=== PATIENT | female | born 1945 | race Caucasian/White ===

== ENCOUNTER 2016-07-18 10:55 | Day surgery (SDC) | payer MEDICARE, OTHER ==
[~2016-07-18] VITALS: Ht 170.2 cm; Wt 68.1 kg
[~2016-07-18 10:55] MED LIST: ASCO100089 PO; CALC600T12 PO; CHOL5000 PO; CRAN500T PO; CYAN50008 PO; FOLI1TAB18 PO; GABA-502 PO; Gentamicin 80 mg/50 mL D5W IV ONE; LORA1TAB PO; Lactated Ringer's 1,000 ML IV SCH; OXYC15TA79 PO; OXYC30TA80 PO; PROP150T PO; TAMS0.4C98 PO; TROS20TA4 PO; VITA150T PO; WARF5TAB7 PO
[2016-07-18] MEDS ORDERED: OXYB5TAB10 PO (11:24)
[2016-07-18 11:41] VITALS: BP 123/59; PULSE 59; RESP 16; O2SAT 100
[2016-07-23] MEDS ORDERED: TROS20TA4 PO (17:05)
== END 2016-07-18 23:59 | disposition home or self-care (01) ==
LOC: SAS 10:55
PROVIDERS: ATTEND Urology
DX: I48.91 Unspecified atrial fibrillation (principal); Z53.09 Procedure and treatment not carried out because of other contraindication

== ENCOUNTER 2016-07-24 00:38 | Day surgery (SDC) | payer MEDICARE, OTHER ==
[~2016-07-24] VITALS: Ht 170.2 cm; Wt 69.3 kg
[2016-07-24] VITALS (15 sets, daily range): BP systolic 107–129; BP diastolic 46–93; PULSE 55–79; RESP 12–20; O2SAT 97–100
[~2016-07-24 00:38] MED LIST changes: -Gentamicin 80 mg/50 mL D5W IV ONE; -Lactated Ringer's 1,000 ML IV SCH
[2016-07-24] MEDS ORDERED: Vancomycin 1 Gm/200 mL NS Premix IV ONE (07:35)
[2016-07-24] MEDS: 0.9% Sodium Chloride 1,000 ML IV SCH ×3 (07:35→18:56)
[2016-07-24 11:52] LABS: Mean Corpuscular Hemoglobin 32.1 pg (27.0-35.0); Mean Corpuscular Volume 99.5 fL (81-100); Platelet Count 303 bil/L (150-400)
[2016-07-24 11:53] LABS: BASOPHILS % (AUTO) 0.2 % (0-3); EOSINOPHILS % (AUTO) 2.3 % (0-5); MONOCYTES % (AUTO) 9.8 % (4-12); NEUTROPHILS % (AUTO) 72.5 % (40-74)
[2016-07-24] MEDS ORDERED: 0.9% Sodium Chloride 1,000 ML ONE (12:00)
[2016-07-24] MEDS ORDERED: Bupivacaine-MPF 0.5% 30 mL Inj ONE (12:01)
[2016-07-24] MEDS ORDERED: 0.9% Sodium Chloride 250 ML ONE (12:01)
[2016-07-24] MEDS ORDERED: Heparin 1,000 Unit/mL 10 mL Inj ONE (12:01)
[2016-07-24] MEDS ORDERED: DIPH25CA6 PO (12:06)
[2016-07-24 12:10] LABS: INR 2.14 ratio
--- NOTE | 2016-07-24 12:22 | NUR ---
[place] Patient admitted to [facility] bed 5 at 1115. at bedside. Patient denies pain. HL X 2 placed and labs obtained. ECG 12 complete. Consent confirmed. History and medications reviewed. Pre-procedure teaching done and questions answered.
[2016-07-24] MEDS ORDERED: Vancomycin 1,000 mg Inj ONE (12:38)
[2016-07-24] MEDS ORDERED: fentaNYL-PF 50 mCg/mL 2 mL Inj ONE (13:28)
[2016-07-24] MEDS ORDERED: Ondansetron 2 mg/mL 2 mL Inj IVPUSH PRN (14:30)
--- NOTE | 2016-07-24 15:21 | DRSVH ---
PROCEDURE: X-RAY CHEST ONE VIEW, PORTABLE ([id number]) INDICATIONS: For new leads placed TECHNIQUE: One view of the chest was acquired. COMPARISON: [facility], CR, XR CHEST 2VW, 07/11/2016, 14:39. FINDINGS: Surgical changes and devices: Dual chamber cardiac pacer present in expected position. Lungs and pleura: No pleural effusions or pneumothorax. Lungs are clear. Mediastinum: Mediastinal contours appear normal. Heart size is normal. Bones and chest wall: No suspicious bony lesions. Overlying soft tissues appear unremarkable. IMPRESSION: No immediate complications status post cardiac pacemaker placement. Dictated by: Gerald JANG Interpreted: Clotilde Telles MD on 07/24/2016 at 15:20 Transcribed by: CARLOS on 07/24/2016 at 15:20 Approved by: Clotilde Telles M.D. on 07/24/2016 at 17:32
[2016-07-24] MEDS ORDERED: diphenhydrAMINE 25 mg Capsule PO ONE ×2 (16:49→16:55)
--- NOTE | 2016-07-24 17:57 | NUR ---
[facility] Patient return to [facility] from [employer] at 1445. at bedside. Pacemaker placement left chest. No bleeding or hematoma at incision site. Initially denies pain but did eventually C/O 10/03. Medicated with oxycodone which patient takes as a home medication but causes her to itch so also given benadryl. Taking PO and up to BSC prior to transfer. Transferred by bed to room 3030 at 1715. Report to receiving RN.
[2016-07-24] MEDS ORDERED: LORazepam 1 mg Tablet PO PRN (18:15)
--- NOTE | 2016-07-24 18:19 | NUR ---
[place] Patient arrive at 1720, oriented to room and hospital policies. Patient denies pain, shortness of breath, and nausea. Dinner ordered, PO fluids provided, and patient asked to call when getting up to BSC. Pacer site on left chest c/d/i, no drainage swelling or indurating. Teaching done on post pacer insertion, sling, lifting and raising arm above shoulder.
--- NOTE | 2016-07-24 18:34 | PCM.CONPHA ---
Assessment/Plan Assessment/Plan ANTICOAGULATION MANAGEMENT BY PHARMACY -INDICATION: HX OF DVT -HOME DOSE: 7.5 MG MON/FRI, 5MG AOD -CONCURRENT ANTICOAGULATION: NONE -CRCL: 73.8 ML/MIN -COAG TRENDS: Date INR 2.14 INR change ~ Warf Dose 5 MG -[id number] SCORE: 2 PLAN: AFTER CONSULTING WITH PATIENT SHE HAS NOT HAD HER HOME DOSE OF COUMADIN 5 MG TONIGHT, SO WILL RESTART AND GIVE HER A OT DOSE. INR ORDERED X5 DAYS Pharmacy appreciates consult and will continue to monitor. THANKS! Sweta Kimball PharmD Jul 24, 2016 18:34
[2016-07-24] MEDS ORDERED: Vancomycin Inj 1,000 MG in IV Premix 1 EACH IV ONE (19:30)
[2016-07-24] MEDS: MeTOProlol XL 25 mg ER24 Tablet PO SCH (21:26)
[2016-07-24] MEDS: diphenhydrAMINE 25 mg Capsule PO PRN (21:32)
--- NOTE | 2016-07-24 21:58 | OP ---
[address] [address] OPERATIVE REPORT PATIENT: CARMELLA NORTH : 1945 MR#: [id number] ADMIT: 07/24/2016 JOB ID: [id number] DATE OF SURGERY: 07/24/2016 PREOPERATIVE DIAGNOSIS(ES): Sick sinus syndrome. POSTOPERATIVE DIAGNOSIS(ES): Sick sinus syndrome. PROCEDURES PERFORMED: 1. Dual-chamber pacemaker implantation. 2. Left upper extremity venogram. 3. Fluoroscopy. SURGEON: Chidi Santa MD BLACKENER: Familia Prado. IMPLANTED DEVICES: 1. [employer] Accolade MRI. Pulse generator model L331, serial #[id number]. 2. RA lead [employer] and Jevity MRI, 45 cm, model #7740, serial #[id number]. 3. RV lead [employer] and [employer]ev[employer] MRI, 52 cm, model #80495Z serial #[id number]. ANESTHESIA: Bolus dosing of Versed and fentanyl were used for an appropriate level of sedation. INDICATION: The patient is a pleasant 70-year-old with sick sinus syndrome. After discussion of risks and benefits of pacemaker implantation, she opted to proceed. PROCEDURAL DESCRIPTION: Following informed consent, the patient was taken to the EP laboratory in a fasting nonsedated state where she was prepped in usual sterile fashion. The left infraclavicular region was infiltrated with 40 cc of a 50/50 mixture of bupivacaine and lidocaine. A 3 cm transverse incision was performed and the patient . Dissection carried down to pectoral fascia and a pocket was then fashioned using a combination of electrocautery and blunt dissection. Once adequate hemostasis had been achieved and under venographic guidance, the left axillary and was cannulated two times with a micropuncture needle to deploy two 0.035, 3 mm J guidewires. Over the first of these, a 6-Occitan tear-away sheath was advanced. Once again it was removed and active fixation lead was in the RV outflow tract all the way to the RV apex. The lead was affixed in position using its associated active fixation screw and was connected to the external analyzer. It demonstrated appropriately sensed R waves, impedance, capture threshold was checked to 10 V and there was no evidence of diaphragmatic stimulation. Attention was now paid to placement of the right atrial lead. Over the other previously deployed J guidewire, another 6-Occitan tear-away sheath was advanced. Once the guidewire was removed, an active fixation wire was advanced to the right atrial appendage. It was affixed in position using associated fixation screw. It was connected to the external analyzer and demonstrated appropriately sensed P waves, impedance, capture threshold was checked to 10 V and there was no evidence of diaphragmatic stimulation. Once the position and redundancy of both leads was confirmed with multiple fluoroscopic views, the leads were anchored to the prepectoralis fascia using their associated anchoring sleeves and Ethibond sutures. The pocket was then copiously irrigated with antibiotic solution. The leads were connected to a generator, the generator was placed into the pocket and was affixed to the floor of the pocket using 1-0 Ti-Cron suture. The incision was then closed with running layers of absorbable suture. The wound was dressed with skin adhesive and a small dressing. At the end of the procedure, the needle, sponge, and instrument counts were all correct. COMPLICATIONS: None. ESTIMATED BLOOD LOSS: Negligible. DEVICE MEASURED DATA: 1. Right atrial lead 2.2 mV, 0.5 V at 0.4 msec, 663 ohms. 2. RV lead 6.3 mV 0.6 V at 0.4 msec 708 ohms. 3. Final parameter was DDDR 60 to 130 beats per minute with rhythmic on. IMPRESSION: Successful dual-chamber pacemaker implantation. PLAN: 1. Stat portable chest x-ray. 2. PA and lateral chest x-ray in the morning. 3. IV vancomycin through tomorrow. 4. Doxycycline x7 days. 5. Wound check in one week. ATTENDING STATEMENT: Chidi Snata MD, electrophysiology attending, was present for and supervised and/or performed all aspects of this procedure.
[2016-07-25] MEDS: 0.9% Sodium Chloride 1,000 ML IV SCH ×3 (00:27→08:15)
[2016-07-25 00:28] VITALS: BP 93/56; PULSE 60; RESP 14; O2SAT 94
[2016-07-25 04:37] VITALS: BP 90/54; PULSE 60; RESP 14; O2SAT 96
[2016-07-25 04:57] VITALS: BP 108/62; PULSE 60
--- NOTE | 2016-07-25 05:10 | NUR ---
PT ACTIVITY & PAIN Pt has been up to BR and BSC w/ SBA to 1 person assist. Pt has very limited ROM in left leg, and left arm immobile dt sling. Pt has chronic pain, received scheduled po pain medications, with some relief, pt able to rest/sleep during shift. Some tenderness and discomfort to pacemaker sight, ice application effective to relieve pain. Continue to monitor. Call light in reach. Bed alarm on. Intentional rounding.
[2016-07-25] MEDS: MeTOProlol XL 25 mg ER24 Tablet PO SCH (08:14)
[2016-07-25] MEDS: diphenhydrAMINE 25 mg Capsule PO PRN (08:21)
[2016-07-25] MEDS ORDERED: Ascorbic Acid 500 mg Tablet PO SCH (08:30)
[2016-07-25] MEDS ORDERED: Vitamin B Complex/Vit C Tablet PO SCH (08:30)
[2016-07-25] MEDS ORDERED: Calcium Carbonate (Oyster Shell) 500 mg Tablet PO SCH (08:30)
--- NOTE | 2016-07-25 09:12 | DRSVH ---
PROCEDURE: X-RAY CHEST, TWO VIEWS ([id number]) INDICATIONS: For new lead placement TECHNIQUE: 2 views of the chest were acquired. COMPARISON: [facility], CR, XR CHEST 1VW (PORTABLE), 07/24/2016, 14:50. [facility], CR, XR CHEST 2VW, 07/11/2016, 14:39. FINDINGS: Surgical changes and devices: Stable position of left cardiac pacer. Lungs and pleura: No pleural effusions or pneumothorax. Lungs are clear. Mediastinum: Mediastinal contours are normal. Heart size is normal. Bones and chest wall: No suspicious bony abnormalities. Soft tissues appear unremarkable. IMPRESSION: Stable chest. Dictated by: Gerald Berg RRA Interpreted: Erica Luke MD on 07/25/2016 at 9:11 Transcribed by: FRANCESCO on 07/25/2016 at 9:12 Approved by: Erica Luke MD, PhD on 07/25/2016 at 17:16
[2016-07-25 09:25] VITALS: BP 99/58; PULSE 60; RESP 14; O2SAT 97
--- NOTE | 2016-07-25 10:12 | PCM.DIMED ---
Discharge Instructions Date of Service Jul 25, 2016 Dates of Hospitalization Discharge Diagnosis Discharge Diagnosis Sick Sinus Syndrome with Paroxysmal Atrial Fibrillation Sinus Bradycardia Syncope Diet Heart Healthy Activity Other (Do not extend left elbow high above left shoulder for one month. Do not lift, push or pull more than 10 lbs with the left arm for one month.) Call your provider Fever or Chills, Bleeding, Excessive diarrhea Patient Instructions Follow-up in: 1 week Mid-level Provider (F9): Andre Mobley PA-C Follow-up with Mid-level in: 6 weeks Andre Mobley PA-C Jul 25, 2016 10:12
[2016-07-25] MEDS ORDERED: PROP225T PO (10:33)
[2016-07-25] MEDS ORDERED: METO25TA99 PO (10:33)
[2016-07-25] MEDS ORDERED: DOXY100C2 PO (10:34)
[2016-07-25 10:44] VITALS: PULSE 60
--- NOTE | 2016-07-25 12:02 | NUR ---
Discharge Pt d/c home with daughter at 1202 via wc by an aide. Pt denied pain. VSS. IV x2 d/c by SRN. Tele taken off, monitor made aware. Discharge education provided and all questions answered. All personal belongings left with.
--- NOTE | 2016-07-25 14:38 | DIS ---
[address] [address] DISCHARGE SUMMARY PATIENT: CARMELLA NORTH : 1945 MR#: [id number] ADMIT: 07/24/2016 JOB ID: [id number] DIS: 07/25/2016 REASON FOR ADMISSION: Pacemaker implant. CHIEF COMPLAINT: Slow heart rates and occasions of syncope. BRIEF HISTORY: The patient is a pleasant 70-year-old woman with a structurally normal heart who has been treated for paroxysmal atrial fibrillation for quite some time. She has been treated with propafenone and metoprolol but this was stopped due to sinus bradycardia and symptoms. At times when in atrial fibrillation she has very rapid responses of pulse rates over 200 BPM and this requires both antiarrhythmic and rate control medications. She was advised of the utility of a pacemaker to prevent bradycardia and allow treatment of the arrhythmia and this was arranged. COURSE IN HOSPITAL: The patient was admitted to the [facility] and taken to the cardiac cath lab radiology technologist, where she received the dual-chamber cardiac pacemaker without incident. She was then transferred back to the [facility] for recovery from sedation and then taken [place] to [place] [facility] [place] overnight telemetry and observation. She did well overnight and in the morning was ambulatory without difficulty and her incision site was closed and dry and there was no hematoma. Chest x-ray showed good lead positions and no pneumothorax. Device evaluation showed good capture and sensing thresholds. She felt well for discharge home. DISPOSITION: The patient was discharged home in good condition with a follow up appointment at the [facility] Cardiology office in one week. She was asked not to extend her left elbow high above her shoulder for one month and not to lift, push or pull more than 10 pounds with the left arm for one month. She will take medications as prescribed and follow a heart healthy diet. DISCHARGE MEDICATIONS: 1. Doxycycline 100 mg daily for one week. 2. Metoprolol succinate 25 mg b.i.d. 3. Propafenone 225 mg q.8 hours. 4. Ascorbic acid 1 g daily. 5. Calcium carbonate 600 mg daily. 6. Vitamin D 3 5000 units daily. 7. Cranberry fruit 500 mg daily. 8. Vitamin B12 5000 mcg daily. 9. Diphenhydramine 25 mg p.r.n. itching. 10. Folic acid 1 mg daily. 11. Gabapentin 600 mg b.i.d. 12. Lorazepam 1 mg b.i.d. p.r.n. anxiety. 13. Oxycodone 15 mg q.12 hours for pain. 14. Oxycodone 30 mg q.12 hours p.r.n. pain. 15. Tamsulosin 0.4 mg daily. 16. Vitamin B and vitamin C complex tablets 150 mg daily. 17. Warfarin 5 mg six days per week and warfarin 7.5 mg one day per week. FINAL DIAGNOSIS: Sick sinus syndrome with paroxysmal atrial fibrillation with rapid ventricular response, sinus bradycardia, and syncope.
== END 2016-07-25 12:09 | disposition home or self-care (01) ==
LOC: SOUO 00:38 → MPC 17:49 → SOUO 07-25 12:09
PROVIDERS: ATTEND Internal Medicine Cardiovascular Disease
DX: I49.5 Sick sinus syndrome (principal); I48.0 Paroxysmal atrial fibrillation; Z79.01 Long term (current) use of anticoagulants; R55 Syncope and collapse; Z98.84 Bariatric surgery status; Z86.718 Personal history of other venous thrombosis and embolism; F32.9 Major depressive disorder, single episode, unspecified
CPT/HCPCS: 33208; 36415; 71010; 71020; 80048; 85025; 85610; 93005; 99152; 99153; C1769; C1785; C1892; C1898; J1644; J2250; J3010; J3370; J7030; J7050; Q9967

== ENCOUNTER 2016-12-13 18:39 | Observation (INO) | payer MEDICARE, OTHER ==
[~2016-12-13] VITALS: Ht 170.2 cm; Wt 74.3 kg
[~2016-12-13 18:39] MED LIST changes: +DIPH25CA6 PO; +DOXY100C2 PO; +METO25TA99 PO; -PROP150T PO; +PROP225T PO; -TROS20TA4 PO
[2016-12-13 18:43] VITALS: BP 94/48; PULSE 70; RESP 16; O2SAT 95
[2016-12-13 19:17] LABS: BASOPHILS % (AUTO) 0.1 % (0-3); EOSINOPHILS % (AUTO) 1.1 % (0-5); MONOCYTES % (AUTO) 11.1 % (4-12); Mean Corpuscular Volume 103.4 fL (81-100); NEUTROPHILS % (AUTO) 75.4 % (40-74); Platelet Count 319 bil/L (150-400)
[2016-12-13 19:23] VITALS: BP 91/47; PULSE 70; RESP 17; O2SAT 96
[2016-12-13 19:23] LABS: INR 0.94 ratio
[2016-12-13 19:28] LABS: TROPONIN T < 0.010 ug/L (0.0-0.011)
--- NOTE | 2016-12-13 19:52 | ABG ---
DateTimeAnalyzed 19:44:15 -_ pH ____7.388 - 7.350 7.450 pCO2 ___47.3__ -mmHg 35.0 45.0 pO2 ___79.4__ -mmHg 70.0 100 HCO3- ___28.5__ -mmol/L 22.0 26.0 ABE ____3.1__ -mmol/L -2.0 2.0 tHb ___12.1__ -g/dL 12.0 18.0 O2Hb ___95.0__ -% 95.0 COHb ____0.5__ -% 1.5 MetHb ____0.2__ -% 0.4 1.5 sO2 ___95.6__ -% FIO2 ___21.0__ -% Drawn By MK - Date/Time Notified____ 19:51:00 -_ Notified By MK - K+ ____4.7__ -mmol/L tO2 ___16.3__ -Vol% Damon test _Positive -
[2016-12-13 20:17] LABS: APPEARANCE,URINE HAZY (CLEAR,HAZY); COLOR,URINE YELLOW (YELLOW); OCCULT BLOOD,URINE TRACE (NEGATIVE); PH,URINE 5.5 (5.0-8.0)
[2016-12-13 20:18] LABS: UROBILINOGEN,URINE NORMAL (NORMAL)
[2016-12-13] MEDS ORDERED: Lactated Ringer's 1,000 ML IV ONE (20:25)
[2016-12-13] MEDS ORDERED: 0.9% Sodium Chloride 1,000 ML IV SCH (20:30)
[2016-12-13] MEDS ORDERED: 0.9% Sodium Chloride 1,000 ML IV ONE (20:45)
--- NOTE | 2016-12-13 20:53 | ED.REPORT ---
HPI-General Illness Date of Service Dec 13, 2016 ED Provider: Slim Mccullouhg MD The patient is a 71 year old female who presents to the ED c/o slurred speech onset 2100 last night. Pt is post-op and had a spinal stimulator placed yesterday. She initially felt fine after the surgery. When she got home from the hospital at 2100 she began having orientation problems, difficulty walking, dropping things, blurred vision, and a slight one sided facial droop. Her symptoms have been gradually improving since onset without intervention. No notable alleviating or exacerbating factors. Versed was used during the procedure, however the patient states that this had worn off by the time she began having symptoms. She denies fever, headache, chest pain, shortness of breath, vomiting pain, nausea, vomiting, diarrhea, numbness, tingling, dysuria, blood in urine or stool, or any other symptoms at this time. Nursing Notes Stated Complaint: SLURRED SPEECH Chief Complaint: Neuro Symptoms/ Deficits Nursing Notes Reviewed: Yes Allergies: Coded Allergies: Sulfa (Sulfonamide Antibiotics) (Verified Allergy, Severe, 12/13/16) Blisters in mouth Penicillins (Verified Allergy, Intermediate, Hives, 12/13/16) losartan (Verified Allergy, Intermediate, 12/13/16) Increased heart rate oxycodone (Verified Allergy, Intermediate, itching, 12/13/16) takes oxycodone for pain with benadryl for the itching amoxicillin (Verified Allergy, Unknown, 09/30/15) baclofen (Verified Allergy, Unknown, 09/30/15) codeine (Verified Allergy, Unknown, 09/30/15) duloxetine (Verified Allergy, Unknown, 09/30/15) hydromorphone (Verified Allergy, Unknown, 09/30/15) indomethacin (Verified Allergy, Unknown, 09/30/15) piroxicam (Verified Allergy, Unknown, 09/30/15) pregabalin (Verified Allergy, Unknown, 09/30/15) tazarotene (Verified Allergy, Unknown, 09/30/15) tramadol (Verified Allergy, Unknown, 09/30/15) acitretin (Verified Adverse Reaction, Severe, 09/30/15) Skin peeled from head and body cephalexin (Verified Adverse Reaction, Severe, 09/30/15) blisters, UTI Scheduled Ascorbic Acid (Vitamin C) 1,000 Mg Tab.chew 1,000 MG PO DAILY Calcium Carbonate (Calcium) 600 Mg Tablet 600 MG PO DAILY Cholecalciferol (Vitamin D3) (Vitamin D3) 5,000 Unit Capsule 5,000 UNIT PO DAILY Cranberry Fruit (Cranberry) 500 Mg Tab.chew 500 MG PO DAILY Cyanocobalamin (Vitamin B-12) (Vitamin B12) 5,000 Mcg Tab.rapdis 5,000 MCG PO DAILY Folic Acid (Folic Acid) 1 Mg Tablet 1 MG PO DAILY Gabapentin (Gabapentin) 300 Mg Capsule 600 MG PO BID Metoprolol Succinate ER (Metoprolol Succinate ER) 25 Mg Tab.er.24h 25 MG PO BID Propafenone (Propafenone) 225 Mg Tablet 225 MG PO q8 hrs Tamsulosin (Flomax) 0.4 Mg Capsule 0.4 MG PO DAILY Vitamin B Complex & Vit C No.4 (Super B Complex) 150 Mg Tablet 150 MG PO DAILY Warfarin Sodium (Warfarin Sodium) 5 Mg Tablet 5 MG PO SAT,SAT,,SAT Warfarin Sodium (Warfarin Sodium) 5 Mg Tablet 7.5 MG PO SAT,SAT,SAT oxyCODONE (oxyCODONE) 30 Mg Tablet 30 MG PO TID Scheduled PRN Diclofenac Gel (Voltaren Gel) 100 Gm Tube 1 APPLIC TOPICAL TID PRN PRN SHOULDER PAIN Oxycodone (Roxicodone) 5 Mg Tablet 10 MG PO TID PRN PRN For Breakthrough Pain diphenhydrAMINE HCl (Benadryl) 25 Mg Capsule 25 MG PO PRN For Itching takes with oxycodone for itching General Time Seen by MD: 18:51 Chief Complaint Other (slurred speech) Hx Obtained From: Patient Arrived By: Ambulance Sudden in Onset?: Yes Onset Occurred: Yesterday Symptom Duration: Since onset Severity: Current: No pain currently Associated with: Reports: Off balance, Speech abnormal, Denies: Dizziness, Fever, Headache, Loss of consciousness Pertinent Negative: Exacerbated by nothing, Relieved by nothing Recent Healthcare: Recent doctor visit, Recent hospitalization, Previous surgery Similar Sx Previous: No Past Medical History Past Medical History osteoporosis Reports: GERD Reports: Atrial fibrillation, Urinary tract infection Past Surgical History Multiple left lower extremity surgeries on chronic pain medications. Is followed by Dr. Early. PICC Line placement spinal stimulator Reports: Hysterectomy Reports: Hip replacement, Knee replacement Smoking History Never Smoker Social History Alcohol Use: Denies alcohol use Drug Use: Denies drug use Other Social History: Good social support, , Local resident Ambulatory Status Independent Review of Systems Full Review of Systems Eyes: Reports: Blurred bilateral Respiratory: Denies: Shortness of breath Cardiovascular: Denies: Chest pain GI: Denies: Diarrhea, Nausea, Vomiting Neurologic: Reports: Problem walking, Slurred speech, Vision change, Denies: Numbness Psychiatric: Reports: Change mental status Complete sys rev & neg: except as marked. Physical Exam Nursing note and vitals reviewed. Constitutional: Well-developed, well-nourished. Not diaphoretic. Head: Normocephalic and atraumatic. Mouth/Throat: Oropharynx is clear and moist. No oropharyngeal exudate. Eyes: EOM are normal. Pupils are equal, round, and reactive to light. Left lid droop. Neck: Supple, no tracheal deviation. Cardiovascular: Normal rate, regular rhythm. Equal and intact distal pulses throughout. Pulmonary/Chest: Effort normal and breath sounds normal. No respiratory distress. Abdominal: Soft. No distension. There is no tenderness, rebound, or guarding. Bowel sounds present. Musculoskeletal: Range of motion grossly intact, moving all extremities. No edema or tenderness appreciated. Healing surgical wound to the patient's right lower back. Neurological: AOx3. Grossly nonfocal exam. Strength and sensation intact and equal to bilateral upper and lower extremities. Normal finger to nose testing. Does have what appears to be a slight left facial droop. Skin: Spinal stimulator scar healing appropriately. No induration. No rash. Psychiatric: Appropriate mood and affect. Behavior appears normal. Vital Signs Vital Signs Date Time Temp Pulse Resp B/P Pulse Ox O2 Delivery O2 Flow Rate FiO2 12/13/16 21:19 72 18 92/48 98 12/13/16 19:23 70 17 91/47 96 Room Air 12/13/16 18:43 70 16 94/48 95 Room Air Initial VS: Reviewed Interpretation & Diagnostics Interpretation & Diagnostics: CT ANGIO HEAD AND NECK IMPRESSION: normal arterial structures in the neck and head Lab Results Interpretation Result Diagram: 12/13/16185712/13/161857 Test 12/13/16 18:58 12/13/16 19:45 White Blood Count 7.2th/mm3 (3.8-10.1) Red Blood Count 3.79mil/mm3 (3.90-5.20) Hemoglobin 12.5g/dL (12.0-15.6) Hematocrit 39.2% (35.0-46.0) Mean Corpuscular Volume 103.4fL (81-100) Mean Corpuscular Hemoglobin 33.0pg (27.0-35.0) Mean Corpuscular Hemoglobin Concent 31.9% (32.0-37.0) Red Cell Distribution Width 14.0% (12.3-15.4) Platelet Count 319bil/L (150-400) Neutrophils (%) (Auto) 75.4% (40-74) Lymphocytes (%) (Auto) 12.2% (14-46) Monocytes (%) (Auto) 11.1% (4-12) Eosinophils (%) (Auto) 1.1% (0-5) Basophils (%) (Auto) 0.1% (0-3) Hold Purple Top Tube Received (Received) Prothrombin Time 10.0sec (8.1-12.5) Prothromb Time International Ratio 0.94ratio Activated Partial Thromboplast Time 27.1sec (22.8-33.0) Hold Blue Top Tube Received (Received) Sodium Level 136mEq/L (134-144) Potassium Level 5.0mEq/L (3.5-5.2) Chloride Level 100mEq/L (97-108) Carbon Dioxide Level 23mmol/L (18-29) Blood Urea Nitrogen 17mg/dL (8-27) Creatinine 0.90mg/dL (0.57-1.00) Estimat Glomerular Filtration Rate 88mL/min (>59) Glucose Level 197mg/dL (60-99) Calcium Level 9.0mg/dL (8.5-10.1) Total Bilirubin 0.3mg/dL (0.0-1.2) Aspartate Amino Transf (AST/SGOT) 27U/L (0-50) Alanine Aminotransferase (ALT/SGPT) 23U/L (0-32) Alkaline Phosphatase 71U/L (25-165) Troponin T < 0.010ug/L (0.0-0.011) Total Protein 7.0g/dL (6.4-8.4) Albumin 3.6g/dL (3.4-5.0) Triglycerides Level 61mg/dL (0-149) Cholesterol Level 173mg/dL (100-199) LDL Cholesterol, Calculated 92.800mg/dL (0-99) VLDL Cholesterol 12.200mg/dL HDL Cholesterol 68mg/dL (>39) Cholesterol/HDL Ratio 2.54 (0.0-4.4) Hold [place] Top Tube Received (Received) Alcohols < 10mg/dL (0-10) Urine Color Yellow (YELLOW) Urine Appearance Hazy (CLEAR,HAZY) Urine pH 5.5 (5.0-8.0) Urine Specific [place] 1.030 (1.003-1.035) Urine Protein Negativemg/dL (NEG,TRACE) Urine Glucose (UA) Negativemg/dL (NEGATIVE) Urine Ketones Negativemg/dL (NEGATIVE) Urine Occult Blood Trace (NEGATIVE) Urine Nitrite Positive (NEGATIVE) Urine Bilirubin Negative (NEGATIVE) Urine Urobilinogen Normalmg/dL (NORMAL) Urine Leukocyte Esterase Moderate (NEGATIVE) Urine RBC 0-2/hpf (0-2) Urine WBC 6-10/hpf (0-5) Urine Epithelial Cells None/hpf (NONE-MOD) Urine Crystals None seen (NONE SEEN) Urine Bacteria Few/hpf (NONE-FEW) Urine Hyaline Casts None/lpf (NONE) Urine Granular Casts None seen (NONE SEEN) Urine Waxy Casts None seen (NONE SEEN) Urine Red Blood Cell Casts None seen (NONE SEEN) Urine White Blood Cell Casts None seen (NONE SEEN) Urine Mucus None seen (None Seen) Urine Trichomonas None seen (NONE SEEN) Urine Yeast None (NONE SEEN) Urinalysis Comment None Urine Culture Reflexed Indicated Urine Opiates Screen Negative Urine Methadone Screen Negative Urine Barbiturates Screen Negative Urine Amphetamines Screen Negative Urine Benzodiazepines Screen Positive Urine Cocaine Metabolite Screen Negative Urine Cannabinoids Screen Negative Lab Results Interpretation: LABS: CBC and CMP within grossly normal limits Neg trop Glucose 197 Coags within normal limits UA shows mild UTI ECG Interpretation ECG Interpretation: atrial paced rhythm (rate 70) left anterior fascicular block probable left ventricular hypertrophy Time: 19:23 Interpreted by: ED physician X-Ray Chest Interpretation Chest Xray Interpretation: IMPRESSION: No radiographic evidence of acute cardiopulmonary pathology. Dictated by: Blake Fortune M.D. on 12/13/2016 at 21:00 Approved by: Blake Fortune M.D. on 12/13/2016 at 21:01 View: Portable Interpretation / Wet Read by: Interpret - Radiologist CT Head Interpretation IMPRESSION: Normal arterial structures in the neck and head Dictated by: Blake Fortune M.D. on 12/13/2016 at 21:44 Approved by: Blake Fortune M.D. on 12/13/2016 at 21:52 Study: Head CT no contrast Interpretation / Wet Read by: Interpret - Radiologist Re-Eval/Medical Decision Med Decision/Clinical Course In summary, 71-year-old female presenting to the ED for evaluation of one day of slurred speech, feeling unsteady, and left-sided facial droop. Differential is broad and includes hypoglycemia, electrolyte abnormality, stroke, TIA, intoxication, systemic infectious process. TPA was considered given patient's facial droop and slurred speech, however she is outside the window for any intervention given onset almost 24 hours ago and slurred speech, instability seems to be improving. CT angiogram of the patient's head and neck negative for any acute abnormality. CBC and CMP grossly within normal limits, troponin negative, chest x-ray without any acute abnormalities. EKG demonstrates no acute ischemic changes. Urinalysis does demonstrate a mild urinary tract infection; this seems unlikely to be responsible for all of the patient's symptoms, especially in the setting of her left-sided facial droop. Given the above, plan admission for further management and evaluation. Patient given several liters of IV fluids here in the emergency department as her blood pressure persistently running in the 80s to 90s systolic; patient does state that she tends to run low, however in the setting of her current presentation, she needs aggressive fluid resuscitation. Patient agreeable to the plan as stated, no further questions. Consultation #1: Referral / Consult Name: Cortez Foote MD Consulted With: Hospitalist Call Returned at: 20:47 American Indian Studies Professor: Agrees with eval, Agrees with plan Note: Case discussed with hospitalist. Consultation #2: Referral / Consult Name: SAMANTA SANTOS DO Consulted With: Hospitalist Call Returned at: 21:44 American Indian Studies Professor: Agrees with eval, Agrees with plan Note: Dr. Samanta Wynn, Resident, sees pt at the ED. Counseled Regarding: Diagnosis, Lab results, Need for follow-up, When/why to return to ED Discharge & Departure Primary Impression: CVA (cerebral vascular accident) CVA mechanism: unspecified Qualified Code: I63.9 - Cerebral infarction, unspecified Additional Impression: Hypotension Hypotension type: unspecified hypotension type Qualified Code: I95.9 - Hypotension, unspecified Disposition: Home Discharge Condition All VS Reviewed: Yes Condition: Stable Referrals: Joseph Green DO (PCP) Crit Care Except Billable Proc Time Spent: 30-74 minutes Services Performed: Patient management by me, Time spent at bedside, Reviewing test results, Reviewing imaging, Discussing patient care, Documentation in record Critical Care Notes: Please see KATT. Dee Dee Attestation Portion of this note were transcribed by Noemi Lakhani. I, Dr. Mccullough, personally performed the history, physical exam, and medical decision-making: I reviewed and confirmed the accuracy for the information in the transcribed note. Signed by: dee dee Otto, 12/13/16 2200 copies to: Joseph Green William B MD Dec 13, 2016 20:52 Noemi Lakhani Dec 13, 2016 21:00
--- NOTE | 2016-12-13 21:03 | DRSVH ---
PROCEDURE: X-RAY CHEST ONE VIEW, PORTABLE ([id number]) INDICATIONS: AMS; eval PNA, other abnl TECHNIQUE: One view of the chest was acquired. COMPARISON: [facility], CR, XR CHEST 1VW (PORTABLE), 07/24/2016, 14:50. FINDINGS: Surgical changes and devices: Left-sided cardiac pacer. Lungs and pleura: No pleural effusions or pneumothorax. Lungs are clear. Mediastinum: Mediastinal contours appear normal. Heart size is normal. Bones and chest wall: No suspicious bony lesions. Overlying soft tissues appear unremarkable. IMPRESSION: No radiographic evidence of acute cardiopulmonary pathology. Dictated by: Blake Fortune M.D. on 12/13/2016 at 21:00 Approved by: Blake Fortune M.D. on 12/13/2016 at 21:01
[2016-12-13] MEDS ORDERED: DICL100G8 TOPICAL (21:11)
[2016-12-13] MEDS ORDERED: OXYC-474 PO (21:11)
[2016-12-13 21:19] VITALS: BP 92/48; PULSE 72; RESP 18; O2SAT 98
[2016-12-13] MEDS ORDERED: 0.9% Sodium Chloride 1,000 ML IV PRN (21:30)
[2016-12-13] MEDS ORDERED: Ondansetron 2 mg/mL 2 mL Inj IVPUSH PRN (21:30)
[2016-12-13] MEDS ORDERED: Alum-Mag Hydrox-Simeth 30 mL Suspension PO PRN (21:30)
[2016-12-13] MEDS ORDERED: Labetalol 5 mg/mL 4 mL Inj IVPUSH PRN (21:30)
[2016-12-13] MEDS ORDERED: Polyethylene Glycol (PEG) 17 Gm Powder PO PRN (21:30)
--- NOTE | 2016-12-13 21:54 | DRSVH ---
PROCEDURE: CT ANGIO HEAD AND NECK (P) INDICATIONS: SLURRED SPEECH. STAT READ TECHNIQUE: Pre-contrast 4.5 mm thick sections acquired from the foramen magnum to the vertex. After the adminis tration of intravenous contrast, 1 mm thick sections acquired from the aortic arch through the [place] of [place]. Post-contrast 4.5 mm thick sections then re-acquired from the foramen magnum to the vert ex. 3-dimensional pubukwi-uxukkssed-gkcwinmeke (MIP) and/or volume rendering reformats were acquired of the central intracranial vasculature and neck separately. For radiation dose reduction, the foll owing was used: automated exposure control, adjustment of mA and/or kV according to patient size. COMPARISON: None. FINDINGS: Image quality: Excellent. BRAIN: CSF spaces: Ventricles are normal in size and shape. Basal cisterns are patent. No extra-axial flu id collections. Brain: No midline shift. No intracranial bleeds or masses. [place]-white matter interface appears int act. Skull and face: Calvarium and facial bones appear intact, without suspicious lesions. Orbits appear normal. Sinuses: Sinuses and mastoids are clear. HEAD CT ANGIOGRAPHY: Anterior circulation: Intracranial internal carotid arteries are normal in size and flow. The flow within the paired anterior cerebral arteries is normal and symmetric. The flow within the middle cer ebral arteries is normal and symmetric. The anterior communicating artery is seen. No aneurysms are seen. Posterior circulation: Visualized portions of the vertebral arteries demonstrate normal caliber, and join to form a normal appearing basilar artery. Flow within the posterior cerebral arteries is norm al and symmetric. No aneurysms are seen. NECK CT ANGIOGRAPHY: Carotid system: The great vessels demonstrate a conventional anatomy as they arise from the aortic a [facility]. The origins of the common carotid arteries appear patent. The common carotid arteries demonstr ate normal caliber and courses. The bifurcation regions are both widely patent. The internal caroti d arteries demonstrate normal calibers and courses. Posterior circulation: The origins of the vertebral arteries both appear widely patent. The more mckeon perior extracranial portions of both vertebral arteries also demonstrate normal courses and calibers. They join to form a normal appearing basilar artery. Soft tissues: Visualized neck soft tissues demonstrate no suspicious abnormalities. Bones: No suspicious bony lesions. Visualized cervical spine appears normally aligned. IMPRESSION: Normal arterial structures in the neck and head. Dictated by: Blake Fortune M.D. on 12/13/2016 at 21:44 Approved by: Blake Fortune M.D. on 12/13/2016 at 21:52
[2016-12-13 22:00] VITALS: BP 94/47; PULSE 73; RESP 18; O2SAT 99
[2016-12-13 23:05] VITALS: BP 109/58; PULSE 72; RESP 20; O2SAT 97
[2016-12-14] VITALS (14 sets, daily range): BP systolic 75–122; BP diastolic 32–82; PULSE 66–100; RESP 16–18; O2SAT 95–98
[2016-12-14] MEDS: 0.9% Sodium Chloride 1,000 ML IV SCH ×2 (00:06→04:34)
--- NOTE | 2016-12-14 00:45 | NUR ---
Admission Pt arrived from the ED via stretcher. Pt is experiencing a lot of back pain to the incision site, moving slowly but steady. Able to walk independently to the bed. All belongings documented. Placed on telemetry.
[2016-12-14] MEDS ORDERED: Labetalol 5 mg/mL 20 mL Inj IVPUSH PRN (02:55)
[2016-12-14 03:08] LABS: Mean Corpuscular Hemoglobin 32.6 pg (27.0-35.0); Mean Corpuscular Volume 103.7 fL (81-100)
--- NOTE | 2016-12-14 03:09 | PCM.HPMED ---
Subjective Date of Service Dec 13, 2016 Primary Provider: Admitting Physician: Primary Care Physician: Joseph Green DO Attending Physician: Chief Complaint: Slurred speech History of Present Illness: Attila Pelayo is a 71-year-old woman with past medical history significant for atrial fibrillation, osteoporosis, and chronic back pain who presents with slurred speech and slight left-sided facial droop. Notably patient underwent implantation of spinal stimulation device for her chronic back pain on 12/12/16. In preparation for this procedure she was taken off her warfarin on 12/05/16. Patient states she tolerated the surgery well but following the surgery she noticed that she developed slurred speech and some general left-sided weakness and facial droop. When she returned to the pain clinic 12/13/16 for follow-up she mentioned these symptoms and was directed to present to the emergency department. Patient states there has been some slight improvement in her symptoms. She will no longer feels unsteady when walking except in relation to her recent surgical procedure. She continues to notice slight slurring her speech but this is also much improved. Her continues to notice a slight drooping of the left corner of her mouth and eyelid. Patient spinal stimulation device is not MRI compatible and patient also has a pacemaker in place. In the ED vitals were temperature 36.6, pulse 70, respiratory 16, blood pressure 94/48, pulse oximetry 94% on room air. Labs remarkable for PT of 10 and an INR 0.[address]. [address] angiogram of the head and neck showed normal arterial structures in no acute intracranial process. Review of Systems: Comprehensive review of systems was conducted with the patient and found to be negative except as noted above in HPI. Allergies Coded Allergies: Sulfa (Sulfonamide Antibiotics) (Verified Allergy, Severe, 12/13/16) Blisters in mouth Penicillins (Verified Allergy, Intermediate, Hives, 12/13/16) losartan (Verified Allergy, Intermediate, 12/13/16) Increased heart rate oxycodone (Verified Allergy, Intermediate, itching, 12/13/16) takes oxycodone for pain with benadryl for the itching amoxicillin (Verified Allergy, Unknown, 09/30/15) baclofen (Verified Allergy, Unknown, 09/30/15) codeine (Verified Allergy, Unknown, 09/30/15) duloxetine (Verified Allergy, Unknown, 09/30/15) hydromorphone (Verified Allergy, Unknown, 09/30/15) indomethacin (Verified Allergy, Unknown, 09/30/15) piroxicam (Verified Allergy, Unknown, 09/30/15) pregabalin (Verified Allergy, Unknown, 09/30/15) tazarotene (Verified Allergy, Unknown, 09/30/15) tramadol (Verified Allergy, Unknown, 09/30/15) acitretin (Verified Adverse Reaction, Severe, 09/30/15) Skin peeled from head and body cephalexin (Verified Adverse Reaction, Severe, 09/30/15) blisters, UTI Home Medications Propafenone Toprol Oxycodone 30 mg 3 times a day Gabapentin 600 mg twice a day Tamsulosin nightly Clindamycin 300 mg 3 times a day PMH Left femur fracture s/p ORIF 2010 Atrial Fibrillation Osteopenia Osteoporosis Hx of small bowel obstruction History of blood transfusion Scalp psoriasis Anemia Constipation Surgical History Total knee arthroplasty Rodríguez-en-Y Gastric bypass Small intestine susrgery Hysterectomy Incontinence surgery Shoulder surgery ORIF femur decompression Sinus surgery Breast lumpectomy Carpal tunnel release Hip surgery Family History Father - , hypothyroid Mother - , CVA, diabetes mellitus Brother - CVA, diabetes mellitus Social History Hx Alcohol Use: No Hx Substance Use: No Hx Tobacco Use: No Smoking Status: Never Smoker Living Arrangement: with Family Exam Vital Signs Vital Sign - Last Date Time Temp Pulse Resp B/P Pulse Ox O2 Delivery O2 Flow Rate FiO2 12/13/16 21:19 72 18 92/48 98 12/13/16 19:23 Room Air Exam General: No acute distress, well-developed, well-nourished, appropriately interactive HEENT: Normocephalic, atraumatic. External ears without defect. Pupils equal, round, and reactive to light and accommodation. Left lid lag present. Oropharynx free of erythema and cobble stoning with dry mucosa. Neck: Supple with full range of motion. No jugular venous distension. No bruits. No lymphadenopathy or thyromegaly. Chest: Pacemaker present left chest wall without surrounding erythema or induration. Cardiovascular: Regular rate and rhythm with no murmurs, rubs, or gallops appreciated Pulmonary: Clear to auscultation bilaterally with no crackles, wheezes, or rhonchi. Shallow respirations due to recent surgery. Abdomen: Bowel tones present. Soft, nontender, nondistended. No hepatosplenomegaly or masses appreciated. Back: Surgical dressing in place on the right lower back from recent stimulator placement. There is some blood collected under dressing but it has not increased and there is no seepage around dressing. Extremities: No clubbing, cyanosis, edema, or lymphadenopathy appreciated. Skin: Normal temperature, turgor, and texture; no rash, ulcers, or subcutaneous nodules appreciated. Neurological: Cranial nerves grossly intact. Mild left facial droop and left lid leg. Shrink intact dry cleaning counter clerk, biceps, triceps, plantar, and dorsiflexion bilaterally. Sensation intact in upper and lower extremities. Negative pronator drift. No dysdiadochokinesia. No known gait impairment. Psychiatric: Normal mood and affect. Alert and oriented to person, place, and time. Lab and Diagnostics Result Diagram: 12/13/16185712/13/161857 X-Rays, CTs and MRIs CT ANGIO HEAD AND NECK (P) IMPRESSION: Normal arterial structures in the neck and head. Dictated by: Blake Fortune M.D. on 12/13/2016 at 21:44 Approved by: Blake Fortune M.D. on 12/13/2016 at 21:52 X-RAY CHEST ONE VIEW, PORTABLE ([id number]) IMPRESSION: No radiographic evidence of acute cardiopulmonary pathology. Dictated by: Blake Fortune M.D. on 12/13/2016 at 21:00 Approved by: Blake Fortune M.D. on 12/13/2016 at 21:01 Assessment & Plan Attila Pelayo is a 71-year-old woman with past medical history significant for atrial fibrillation, osteoporosis, and chronic back pain who presents with slurred speech and slight left-sided facial droop. Cerebrovascular accident, present on admission, active. - Etiology likely secondary to holding warfarin for stimulation implantation on 12/12/16. Warfarin has been held since 12/05/16. INR not therapeutic at this time. - Not a candidate for TPA due to symptoms beginning 24 hours ago. - CT angiogram head and neck showed normal arterial structures in the neck and head. No acute intracranial abnormality. - ABCD score was 5. - Echo ordered. - MRI contraindicated as spinal stimulation device is not compatible. Day team to consider repeat CT. - Allow for permissive hypertension to not treat unless SBP >220 or DBP >120 - Warfarin to be restarted per surgeon on 12/20/16. - Atorvastatin 10 mg daily continued per home regimen. Hypotension, present on admission, active. - IV fluid bolus of 1 L received in the ED. Additional bolus given when the patient reached the floor and continued at 125 ml/hr. - 500 mL bolus to be given for systolic blood pressure less than 100. - Blood pressure medications held. Paroxysmal atrial fibrillation, present on admission, active. - Patient currently in normal sinus rhythm. - Patient typically on chronic anticoagulation with warfarin but this was held due to surgery since 12/05/2016. - PT 10.0 and INR 0.94. - Home medication regimen includes propafenone and metoprolol. Both will be held due to hypotension. Will monitor rate closely. Chronic back pain with recent stimulation device implanted on 12/12/2016, present on admission, active. - Hold warfarin per surgeon until 12/20/2016. - We will continue clindamycin 300 mg 3 times a day for surgical prophylaxis. - Continue home regimen of Gabapentin 600 mg twice a day. - Continue home regimen of oxycodone 30 mg 3 times a day. Incontinence, present on admission, active. - Continue home regimen of tamsulosin 0.8 mg nightly. PRN Medications - Acetaminophen as needed for mild pain/fever/headache - Bowel regimen as needed - Antiemetic as needed Patient is admitted under observation status with expected length of stay less than 2 midnights due to severity of presenting symptoms, risk of adverse event, and complexity of treatment plan. Pain Evaluation: Adequate Pain Control GI Prophylaxis: Not indicated VTE Prophylaxis Indicated: Contraindicated VTE Prophylaxis: SCDs Resuscitation Status: CPR: Attempt Resuscitation Attending Statement The patient was seen and examined together with Dr. Santos on 12/13 and I agree with the history, exam and plan as outlined in the note above. DORIS SANTOS DO Dec 13, 2016 21:25 Jean-Paul Lubin MD Dec 14, 2016 05:04
[2016-12-14] MEDS ORDERED: 0.9% Sodium Chloride 1,000 ML IV SCH ×2 (06:40→14:05)
[2016-12-14] MEDS ORDERED: OXYCODONE 30 MG PO SCH (08:30)
--- NOTE | 2016-12-14 11:30 | NUR ---
Evaluation completed. Please go to "Notes" then click on "Assessments and Notes" (bottom left corner of screen). Then select appropriate discipline tab on top of screen.
--- NOTE | 2016-12-14 13:53 | NUR ---
NUTRITION ASSESSMENT: ASSESS: Pt is a 71yo F admitted for CVA. Pt presented with slurred speech and slight left-sided facial droop. She currently has a General diet order but ST eval is pending. Per chart review, pt's wt has been stable x2 years. PMHX: Afib, osteoporosis, chronic back pain LABS: Reviewed. Ca 7.5, Alb 3.6 MEDS: Reviewed. GI: 0 BM SKIN: no major issues CURRENT WTS: 68.1kg, BMI 23.5kg/m2 DIET: General- ST eval pending EST. NEEDS: Kcals: 1705-2045kcal/day (25-30kcal/kg) Pro: 70-85g/day (1.0-1.2g/kg) NUTRITION DIAGNOSIS: 1.) Possible chew/swallow difficulty related to CVA as evidence by reported weakness, slurred speech and facial droop NUTRITION INTERVENTION: 1.) Diet per ST 2.) Will monitor for PO intake/tolerance MONITOR / EVAL: PO, ST, GI, labs, POC, nutrition status. Will continue to monitor per high nutrition risk guidelines.
--- NOTE | 2016-12-14 14:38 | NUR ---
Inpatient Wound Nurse Assessment requested to determine if patient is continuing to bleed at spinal stimulation device insertion site. Evidence of dried blood observed under clear adhesive dressing in lumbar area. Clear adhesive dressing was carefully removed and numerous steristrips coated in coagulated blood were carefully removed over two, well-approximated incisions. No new drainage noted, no ooze with cleansing and application of new dressing. Entire area was cleansed with NS and sterile gauze, then swabbed with skin prep. Two steri-strips were applied over distal portion of vertical incision where moist tissue observed. These were covered with unfolded 2 x 2 gauze, then new clear adhesive dressing applied. If patient is bleeding from this site, this should be evident immediately. If new dressing is needed, please apply 4x4 gauze and clear adhesive dressing.
[2016-12-14] MEDS ORDERED: diphenhydrAMINE 25 mg Capsule PO PRN (14:40)
--- NOTE | 2016-12-14 14:53 | NUR ---
spiritual care: pt request conversational visit. pt shared medical update, easing of her symptoms and current unrelated life stresses and coping through them. Pt said she recently had surgery and placement of device to manage back pain. Pt known to senior ecologist from previous visits; she reflected on her muslim edith and its role in her coping.
--- NOTE | 2016-12-14 15:07 | NUR ---
Evaluation completed. Please go to "Notes" then click on "Assessments and Notes" (bottom left corner of screen). Then select appropriate discipline tab on top of screen.
--- NOTE | 2016-12-14 15:55 | NUR ---
Evaluation completed. Please go to "Notes" then click on "Assessments and Notes" (bottom left corner of screen). Then select appropriate discipline tab on top of screen.
--- NOTE | 2016-12-14 17:44 | NUR ---
CARLA explained and signed. Copy of CARLA and Medicare self administered medication information given to pt.
--- NOTE | 2016-12-14 17:53 | PCM.PNMED ---
Subjective Date of Service Dec 14, 2016 Subjective Overnight Mrs. Pelayo was admitted to the hospital. This morning she says that her speech sounds better and she is not globally weak. She denies any headache, chest pain, palpitations, focal deficits, or muscle weakness. Exam Vital Signs Vital Sign - Last Date Time Temp Pulse Resp B/P Pulse Ox O2 Delivery O2 Flow Rate FiO2 12/14/16 16:04 36.6 67 16 90/48 96 Room Air 12/14/16 12:32 Intake and Output 12/13/16 12/13/16 12/14/16 Cumulative From/Thru 15:00 23:00 07:00 12/13/16 18:43 - 12/13/16 23:26 Intake Total 2000 ml 2000 ml Balance 2000 ml 2000 ml IV Total 2000 ml 2000 ml Exam General: No acute distress, well-developed, well-nourished, appropriately interactive HEENT: NCAT. PERRLA, EOMI. Left lid lag present with drooping at rest. Membranes pink and dry. Neck: Supple with full range of motion. No jugular venous distension or thyromegaly. Chest: Pacemaker present left chest wall without surrounding erythema or induration. Cardiovascular: RRR with no murmurs, rubs, or gallops appreciated Pulmonary: Clear to auscultation bilaterally with no crackles/wheezes/rhonchi. Abdomen: Bowel tones present. Soft, nontender, nondistended. No hepatosplenomegaly or masses appreciated. Back: Surgical dressing changed with wound care. Wounds are closed without surrounding erythema or weeping. Extremities: No clubbing, cyanosis, edema, or lymphadenopathy appreciated. Skin: Normal temperature, turgor, and texture; no rash, ulcers, or subcutaneous nodules appreciated. Neurological: Cranial nerves grossly intact. Left facial droop and left lid drooping with lag. Muscle strength normal in all extremities. Sensation intact in upper and lower extremities. Psychiatric: Normal mood and affect. Alert and oriented to person, place, and time. IVs and Medications Medications Reviewed: Medications were reviewed in detail Lab and Diagnostics Result Diagram: 12/14/16 0230 12/14/16 0230 X-Rays, CTs and MRIs CT ANGIO HEAD AND NECK (P) IMPRESSION: Normal arterial structures in the neck and head. Dictated by: Blake Fortune M.D. on 12/13/2016 at 21:44 Approved by: Blake Fortune M.D. on 12/13/2016 at 21:52 X-RAY CHEST ONE VIEW, PORTABLE ([id number]) IMPRESSION: No radiographic evidence of acute cardiopulmonary pathology. Dictated by: Blake Fortune M.D. on 12/13/2016 at 21:00 Approved by: Blake Fortune M.D. on 12/13/2016 at 21:01 Assessment & Plan Attila Pelayo is a 71-year-old woman with past medical history significant for atrial fibrillation, osteoporosis, and chronic back pain who presents with slurred speech and slight left-sided facial droop. Cerebrovascular accident, present on admission, active. Improving. - Etiology likely secondary to holding warfarin for stimulation implantation on 12/12/16 - has been held since 12/05/16. - CT angiogram head and neck showed normal arterial structures in the neck and head. No acute intracranial abnormality. - ABCD score was 5, high risk for another TIA/CVA - Echo pending - Noncon brain CT ordered for reevaluation (No MRI due to pacemaker) - Dr. Porter, the spinal surgeon, was contacted; supports anticoagulant use prior to 12/20 - Will start warfarin per pharmacy pending head CT report; consider adding heparin to bridge - Atorvastatin 10 mg daily continued. Hypotension, present on admission. Ongoing. - Decrease fluids to 80mls/hr pending Echo results - 500ml bolus is SBP < 90 - Continue to hold home propafenone and metoprolol Paroxysmal atrial fibrillation, present on admission. Ongoing. - Patient remains in NSR - Patient typically on chronic anticoagulation with warfarin but this was held due to surgery since 12/05/2016. - PT 10.0 and INR 0.94; restart warfarin when CT is read - Hold propafenone and metoprolol as above Chronic back pain with recent stimulation device implanted on 12/12/2016, present on admission, active. - We will continue clindamycin 300 mg 3 times a day for surgical prophylaxis - Continue home regimen of Gabapentin 600 mg twice a day. - Changed oxycodone to 20mg from 30mg as added Benadryl 25mg has made her too drowsy - 10mg oxycodone for breakthrough pain as her surgeon recommended Incontinence, present on admission, active. - Continue home regimen of tamsulosin 0.8 mg nightly. PRN Medications - Acetaminophen as needed for mild pain/fever/headache - Bowel regimen as needed - Antiemetic as needed Disposition: Patient will likely be here 1-2 more days depending on her continued medical stability and improvement. Her biggest question at this time is anticoagulation while INR gets to a therapeutic level, which is dependent on her CT scan. GI Prophylaxis: Not indicated VTE Prophylaxis: SCDs Resuscitation Status: CPR: Attempt Resuscitation Attending Statement The patient was seen and examined together with Dr. Carr on 12/14/2016 and I agree with the history, exam and plan as outlined in the note above. . Reed Carr DO Dec 14, 2016 17:53 Jonathan Lozoya MD Dec 15, 2016 16:31
--- NOTE | 2016-12-14 19:23 | NUR ---
Nuero/Pain Patient a/o x 3, c/o back pain, scheduled pain meds x 2 given with good effect. 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 wSeta's wnl, except left eye droop and bilat hand tremors. Patient oob with one person assist, amb with walker. Patient taking diet fair. See vitals. Tele A paced. Plan for CT scan at 2000 tonight then start Coumadin pending results. Noc RN aware.
[2016-12-14] MEDS ORDERED: Heparin 5,000 Unit/mL Inj SUBQ SCH (20:30)
--- NOTE | 2016-12-14 21:02 | NUR ---
Pt back from having Brain CT done.
--- NOTE | 2016-12-14 21:05 | DRSVH ---
PROCEDURE: CT BRAIN WITHOUT CONTRAST ([id number]) INDICATIONS: stroke, evaluate for intracranial hemorrhage TECHNIQUE: Noncontrast 4.5 mm thick angled axial sections acquired from the foramen magnum to the vertex, with c oronal reformats. COMPARISON: [facility], CT, CT ANGIO BRAIN AND NECK, 12/13/2016, 20:45. FINDINGS: Image quality: Excellent. CSF spaces: Basal cisterns are patent. No extra-axial fluid collections. The ventricles are symmet marie in size and shape. Brain: No intracranial bleeds or masses. There is cerebral volume loss for age, with resultant vent ricular and sulcal prominence. There are periventricular and deep white matter chronic small vessel ischemic changes. There is intracranial internal carotid artery atherosclerosis. Skull and face: Calvarium and visualized facial bones appear intact, without suspicious lesions. Sinuses: Visualized sinuses and mastoids are clear. IMPRESSION: No acute intracranial disease process. Dictated by: Erica Luke MD, PhD on 12/14/2016 at 21:02 Approved by: Erica Luke MD, PhD on 12/14/2016 at 21:04
[2016-12-15 02:58] LABS: BASOPHILS % (AUTO) 0.2 % (0-3); MONOCYTES % (AUTO) 15.3 % (4-12); Mean Corpuscular Volume 105.1 fL (81-100); NEUTROPHILS % (AUTO) 62.2 % (40-74); Platelet Count 228 bil/L (150-400)
[2016-12-15 04:50] VITALS: BP 99/63; PULSE 67; RESP 18; O2SAT 97
--- NOTE | 2016-12-15 05:34 | NUR ---
Neuro/Pain Pt alert and oriented. Mild left facial/eye droop noted. Able to ANDERSON. Transfers from bed to bsc and using cane with sba. Scheduled pain meds and prn meds for chronic pain with some effectiveness noted per pt. Pt rates pain down to 5/10 after pain meds. Telemetry Paced in 70s. Pt sleeping but awaken easily with stimuli and able to hold attention.
[2016-12-15 06:12] VITALS: PULSE 71
[2016-12-15 07:30] VITALS: PULSE 71
[2016-12-15 07:36] VITALS: BP 152/77; PULSE 70; RESP 16; O2SAT 99
[2016-12-15 08:55] VITALS: PULSE 70
[2016-12-15] MEDS ORDERED: LOV100 SUBQ ×2 (11:51→13:01)
--- NOTE | 2016-12-15 11:56 | PCM.DIMED ---
Reed Carr DO 12/15/16 1149: Discharge Instructions Date of Service Dec 15, 2016 Dates of Hospitalization Dec 13, 2016 at 21:51 Discharge Diagnosis Discharge Diagnosis Cerebrovascular accident Hypotension Paroxysmal atrial fibrillation Chronic back pain with recent stimulation device implanted on 12/12/2016 Incontinence Diet Discharge Diet: Heart Healthy Activity Discharge Activity: Other (Follow post-op recommendations) Call your provider Call your provider for: Bleeding, Weakness (unilateral), Other (Slurred speech) Patient Instructions Patient Instructions Continue your home warfarin regimen with close follow up at the INR clinic. Your risk of another TIA is high; I would like you to inject Lovenox 100mg/ml every 12 hours until your warfarin is therapeutic. Follow up with Dr. Green in 1-2 weeks to evaluation further symptoms or medication changes. Follow up with Dr. Porter as scheduled. Due to your post-op and hospitalization weakness, I concur with PT and recommend home health services for PT 3x weekly for 2-3 weeks to safely help regain strength and function. Follow-up Provider: Joseph Green DO Follow-up with PCP in: 2 weeks Jonathan Lozoya MD 12/15/16 1632: Discharge Instructions Attending's Statement The patient was seen and examined together with Dr. Carr on 12/15/2016 and I agree with the history, exam and plan as outlined in the note above. . Reed Carr DO Dec 15, 2016 11:49 Jonathan Lozoya MD Dec 15, 2016 16:32
[2016-12-15 12:23] VITALS: BP 112/66; PULSE 70; RESP 16; O2SAT 98
[2016-12-15 12:25] LABS: INR 0.95 ratio
--- NOTE | 2016-12-15 13:12 | DRSVH ---
[facility] [address] [place] [address] Echocardiogram Report Name: CARMELLA NORTHudbetzaida Ross e: 12/15/2016 Height: 67 in Hospital Exam Location: [facility] Weight: 150 lb Gender: Female BSA: 1.8 m2 : 1945 Age: 71 yrs BP: 99/63 mmHg Reason For Study: CVA Ordering Physician: Maribell BergistPerformed By: Noah Bryant Referring Physician: DORIS SANTOS Interpretation Summary The left ventricle is normal in size. The ejection fraction is estimated to be 65-70%. There are no focal wall motion abnormalities. The right ventricle grossly appears normal in size with probable normal systolic function. There is a pacemaker lead in the right ventricle. Pulmonary artery pressures cannot be estimated because of the lack of a measurable TR jet velocity. The left atrium grossly appears normal in size. The right atrium grossly appears normal in size. An agitated saline contrast bubble study was performed at the end of the exam. Patient coughed 4 beats after saline entered right atrium. After cough, there are questionable bubbles in the left ventricle. Image quality is suboptimal which decrease the specificity of bubble study. There is no significant valvular heart disease. The aortic root is normal size. Otherwise there are no significant changes since prior study on 06/08/2016, except there is a new RV pacer lead. Procedure: A two-dimensional transthoracic echocardiogram with color flow and Doppler was performed. The study quality was technically adequate. Comparison is made with the echocardiogram of 06/08/16. Apical images were off -axis secondary to breast implants. The patient was in normal sinus rhythm during the exam. Left Ventricle: The left ventricle is normal in size. There is normal left ventricular wall thickness. Proximal septal thickening is noted. The ejection fraction is estimated to be 65-70%. There are no focal wall motion abnormalities. Assessment of diastolic parameters indicates normal left ventricular diastolic function and normal filling pressures. Right Ventricle: The right ventricle grossly appears normal in size with probable normal systolic function. There is a pacemaker lead in the right ventricle. Atria: The left atrium grossly appears normal in size. The right atrium grossly appears normal in size. There is a catheter/pacemaker lead seen in the right atrium. An agitated saline contrast bubble study was performed at the end of the exam. Patient coughed 4 beats after saline entered right atrium. After cough, there are questionable bubbles in the left ventricle. Mitral Valve: The mitral valve is normal. There is no mitral regurgitation noted. Aortic Valve: The aortic valve is normal in structure and function. No aortic regurgitation is present. Tricuspid Valve: The tricuspid valve is not well visualized, but is grossly normal. Pulmonary artery pressures cannot be estimated because of the lack of a measurable TR jet velocity. Pulmonic Valve: The pulmonic valve is not well seen, but is grossly normal. There is no pulmonic valvular regurgitation. There is no significant valvular heart disease. Great Vessels: The aortic root is normal size. The dimensions of the ascending aorta are normal. The pulmonary artery is normal size. The inferior vena cava was not visualized. Pericardium/ Pleura There is no pericardial effusion. There is no pleural effusion. MMode/2D Measurements & Calculations LVIDd LVOT diam LV gómez. diameter/BSA LV sys. diameter/BSA : 4.3 cm (cm/m^2): 2.4 (cm/m^2): 1.2 LVIDs AoV Opening : 2.2 cm FS: 48.7 %Ao root diam EPSS : 0.3cm asc Aorta Diam Doppler Measurements & Calculations Ao V2 max MV E max asif MV E/A: 1.2 MV dec time : 125.4 cm/sec : 78.1 cm/sec Med Peak E' Asif : 0.22 sec Ao max P.3 mmHgMV A max asif Ao mean PG : 65.6 cm/sec E/E' med: 11.2 Lat Peak E' Asif LVOT Max Asif : 94.9 cm/sec E/E' lat: 9.7 E/e' average: 10.5 EDY(I,D): 3.2 cm sev ratio: 0.82 Ao V2 mean LV V1 max PG EDY indexed to BSA : 90.5 cm/sec (cm^2/m^2): 1.8 Ao V2 VTI: 26.1 cm LV V1 VTI: 21.5 cm EDY(V,D): 2.9 cm2 Reading Physician:RUTH
[2016-12-15] MEDS ORDERED: Pharmacy Discharge Counseling XX SCH (13:30)
[2016-12-15] MEDS ORDERED: ATOR10TA66 PO (13:44)
[2016-12-15] MEDS ORDERED: LOV80 SUBQ (13:44)
--- NOTE | 2016-12-15 14:15 | NUR ---
Discharge note Patient a/o x 3, c/o min back pain, scheduled pain meds given with good effect. Patient oob with min assist, amb in room, steady gait. Nuero's wnl except mild left eye droop, VSS, tele SR. Patient given Lovenox teaching and patient able to give return demo and injected Lovenox in LUQ abd. Patient given discharge instructions, medication reconciliation, info on Lovenox, subQ injections, stroke and prescriptions. All questions answered. IV SL x 2 and tele removed intact. Patient taken to the car via wheelchair with all belongings and discharged home with .
--- NOTE | 2016-12-15 14:33 | NUR ---
Social Work-Initial Assessment/Discharge/Multidisciplinary Rounds Data: See Initial Assessment. Pt is a 71 year old female admitted 12/13/16 for CVA. Per MD, pt is medically stable to discharge home with HHPT services. F2F provided to PYROMETALLURGICAL ENGINEER. SW met with pt and at bedside regarding discharge plan, SW role explained. Pt alert and oriented x3. Pt resides in [place] with her spouse where she is independent with ADLs and self-care. No concerns for pt's capacity for self-care. Pt has hx of but was unsure of the company. Pt is not open with any HH services currently. Pt has history of SNF in [facility], again unsure of the name. Pt uses a cane and walker at baseline. Pt drives. Pt declined DPOA information. Pt's designated support person is Josemanuel Pelayo. HH recommendation explained to pt. HH CHOICE LIST PROVIDED to pt. Pt had no choice and PYROMETALLURGICAL ENGINEER consulted the rotating calendar. SW made referral to [facility]. Cristy at [facility] reviewed referral and agreed to service pt. PT services are out until Saturday at this time. Pt notified that Cl[facility]ier will contact her directly. Pt provided Discharge Planning Checklist, phone number. No other needs identified. Assessment: Pt for whom services are medically necessary Plan: Pt to discharge home with her to transport via POV. No other needs identified. GLORIA Huitron Addendum: 12/15/16 at 1437 by NURY HALREY Amended: Links added.
--- NOTE | 2016-12-15 14:36 | PCM.DC.MED ---
Discharge Summary Date of Service Dec 15, 2016 Dates of Hospitalization Date of Hospital Admission Dec 13, 2016 at 21:51 Date of Discharge: Dec 15, 2016 Providers: Admitting Physician: Jean-Paul Lubin MD Primary Care Physician: Joseph Green DO Attending Physician: Jonathan Lozoya MD Diagnosis at Time of Discharge Diagnosis at Time of Discharge Cerebrovascular accident Hypotension Paroxysmal atrial fibrillation Chronic back pain with recent stimulation device implanted on 12/12/2016 Incontinence Procedures XRay, CTs & MRIs Noncon Brain CT IMPRESSION: No acute intracranial disease process. Dictated by: Erica Luke MD, PhD on 12/14/2016 at 21:02 Approved by: Erica Luke MD, PhD on 12/14/2016 at 21:04 CT ANGIO HEAD AND NECK (P) IMPRESSION: Normal arterial structures in the neck and head. Dictated by: Blake Fortune M.D. on 12/13/2016 at 21:44 Approved by: Blake Fortune M.D. on 12/13/2016 at 21:52 X-RAY CHEST ONE VIEW, PORTABLE ([id number]) IMPRESSION: No radiographic evidence of acute cardiopulmonary pathology. Dictated by: Blake Fortune M.D. on 12/13/2016 at 21:00 Approved by: Blake Fortune M.D. on 12/13/2016 at 21:01 Cardiac Echo Impression Echo 12/15/16 Interpretation Summary The left ventricle is normal in size. The ejection fraction is estimated to be 65-70%. There are no focal wall motion abnormalities. The right ventricle grossly appears normal in size with probable normal systolic function. There is a pacemaker lead in the right ventricle. Pulmonary artery pressures cannot be estimated because of the lack of a measurable TR jet velocity. The left atrium grossly appears normal in size. The right atrium grossly appears normal in size. An agitated saline contrast bubble study was performed at the end of the exam. Patient coughed 4 beats after saline entered right atrium. After cough, there are questionable bubbles in the left ventricle. Image quality is suboptimal which decrease the specificity of bubble study. There is no significant valvular heart disease. The aortic root is normal size. Otherwise there are no significant changes since prior study on 06/08/2016, except there is a new RV pacer lead. Brief History Attila Pelayo is a 71-year-old woman with past medical history significant for atrial fibrillation, osteoporosis, and chronic back pain who presented to the ED with slurred speech and slight left-sided facial droop. She underwent a spinal stimulator implantation on 12/12 and has been holding her warfarin since . After the surgery she noticed some slurred speech and left sided weakness but it wasn't until 12/13 at the surgical follow up that she was directed to go to the ED. She noticed some improvement in symptoms since they occurred with the only residual effects being left sided facial and lid droop. Patient was unable to undergo MRI evaluation due to having an implanted pacemaker. Her CT angiogram done in the ED show normal arterial structures without acute intracranial processes. During her hospitalization she was evaluated by OT, PT, and ST for recommendations. She was quite weak during her PT eval but otherwise was cleared for her ADL's and taking medications or food. A follow up noncon CT of her brain was negative. The biggest questions was that her surgeon, Dr. Porter, did not want to start warfarin until 12/20. After a discussion with him, the patient, and evaluation of her surgical wound, it was decided that we restart her warfarin therapy and bridge accordingly. She will be bridged with Lovenox as an outpatient until her warfarin reaches therapeutic dose as her risk for another TIA/CVA is quite high (6-12%). Hospital Course Attila Pelayo is a 71-year-old woman with past medical history significant for paroxysmal atrial fibrillation, osteoporosis, and chronic back pain who presents with slurred speech and slight left-sided facial droop. Cerebrovascular accident, present on admission, active. Improving. - Etiology likely secondary to holding warfarin for stimulation implantation on 12/12/16 - has been held since 12/05/16. - CTA, CT negative as above - Restart warfarin; bridge with therapeutic Lovenox for 5 days or until therapeutic INR is reached - Continue Atorvastatin 10 mg daily - Start ASA 81mg daily Hypotension, present on admission. Resolved. - Continue home propafenone and metoprolol Paroxysmal atrial fibrillation, present on admission. Resolved. - Patient was in NSR entire admission - Restarted warfarin, Lovenox bridging as above - Continue propafenone and metoprolol as above Chronic back pain with recent stimulation device implanted on 12/12/2016, present on admission. Stable. - Continue taking her clindamycin prescribed by her surgeon - Continue home Gabapentin 600 mg twice a day. - Continue home pain regimen Incontinence, present on admission. Stable. - Continue home tamsulosin 0.8 mg nightly. Disposition: Patient was discharged in stable and improved condition. She and her expressed understanding and risks of the forward going treatment plan and under what conditions she was to return to seek further medical intervention. Exam Vital Signs (Last) Date Time Temp Pulse Resp B/P Pulse Ox O2 Delivery O2 Flow Rate FiO2 12/15/16 13:05 Room Air 12/15/16 12:23 37.1 70 16 112/66 98 12/14/16 12:32 Exam General: No acute distress, well-developed, well-nourished, appropriately interactive HEENT: NCAT. PERRLA, EOMI. Left lid lag present with slight droop at rest. Membranes pink and dry. Neck: Supple with full range of motion. No jugular venous distension or thyromegaly. Chest: Pacemaker present left chest wall without surrounding erythema or induration. Cardiovascular: RRR with no murmurs, rubs, or gallops appreciated Pulmonary: Clear to auscultation bilaterally with no crackles/wheezes/rhonchi. Abdomen: Bowel tones present. Soft, nontender, nondistended. No hepatosplenomegaly or masses appreciated. Back: Surgical dressing changed with wound care. Wounds are closed without surrounding erythema or weeping. Extremities: No clubbing, cyanosis, edema, or lymphadenopathy appreciated. Skin: Normal temperature, turgor, and texture; no rash, ulcers, or subcutaneous nodules appreciated. Neurological: Cranial nerves grossly intact. Left facial droop and left lid drooping with lag. Muscle strength normal in all extremities. Sensation intact in upper and lower extremities. Psychiatric: Normal mood and affect. Alert and oriented to person, place, and time. Test 12/13/16 18:58 12/13/16 19:45 12/15/16 02:20 12/15/16 12:07 Hold Purple Top Tube Received (Received) Activated Partial Thromboplast Time 27.1sec (22.8-33.0) Hold Blue Top Tube Received (Received) Hemoglobin A1c 5.4% (4.8-5.6) Troponin T < 0.010ug/L (0.0-0.011) Triglycerides Level 61mg/dL (0-149) Cholesterol Level 173mg/dL (100-199) LDL Cholesterol, Calculated 92.800mg/dL (0-99) VLDL Cholesterol 12.200mg/dL HDL Cholesterol 68mg/dL (>39) Cholesterol/HDL Ratio 2.54 (0.0-4.4) Hold [place] Top Tube Received (Received) Alcohols < 10mg/dL (0-10) Urine Color Yellow (YELLOW) Urine Appearance Hazy (CLEAR,HAZY) Urine pH 5.5 (5.0-8.0) Urine Specific [place] 1.030 (1.003-1.035) Urine Protein Negativemg/dL (NEG,TRACE) Urine Glucose (UA) Negativemg/dL (NEGATIVE) Urine Ketones Negativemg/dL (NEGATIVE) Urine Occult Blood Trace (NEGATIVE) Urine Nitrite Positive (NEGATIVE) Urine Bilirubin Negative (NEGATIVE) Urine Urobilinogen Normalmg/dL (NORMAL) Urine Leukocyte Esterase Moderate (NEGATIVE) Urine RBC 0-2/hpf (0-2) Urine WBC 6-10/hpf (0-5) Urine Epithelial Cells None/hpf (NONE-MOD) Urine Crystals None seen (NONE SEEN) Urine Bacteria Few/hpf (NONE-FEW) Urine Hyaline Casts None/lpf (NONE) Urine Granular Casts None seen (NONE SEEN) Urine Waxy Casts None seen (NONE SEEN) Urine Red Blood Cell Casts None seen (NONE SEEN) Urine White Blood Cell Casts None seen (NONE SEEN) Urine Mucus None seen (None Seen) Urine Trichomonas None seen (NONE SEEN) Urine Yeast None (NONE SEEN) Urinalysis Comment None Urine Culture Reflexed Indicated Urine Opiates Screen Negative Urine Methadone Screen Negative Urine Barbiturates Screen Negative Urine Amphetamines Screen Negative Urine Benzodiazepines Screen Positive Urine Cocaine Metabolite Screen Negative Urine Cannabinoids Screen Negative White Blood Count 5.3th/mm3 (3.8-10.1) Red Blood Count 3.15mil/mm3 (3.90-5.20) Hemoglobin 10.4g/dL (12.0-15.6) Hematocrit 33.1% (35.0-46.0) Mean Corpuscular Volume 105.1fL (81-100) Mean Corpuscular Hemoglobin 33.0pg (27.0-35.0) Mean Corpuscular Hemoglobin Concent 31.4% (32.0-37.0) Red Cell Distribution Width 14.0% (12.3-15.4) Platelet Count 228bil/L (150-400) Neutrophils (%) (Auto) 62.2% (40-74) Lymphocytes (%) (Auto) 19.1% (14-46) Monocytes (%) (Auto) 15.3% (4-12) Eosinophils (%) (Auto) 3.0% (0-5) Basophils (%) (Auto) 0.2% (0-3) Sodium Level 142mEq/L (134-144) Potassium Level 4.9mEq/L (3.5-5.2) Chloride Level 109mEq/L (97-108) Carbon Dioxide Level 22mmol/L (18-29) Blood Urea Nitrogen 15mg/dL (8-27) Creatinine 0.71mg/dL (0.57-1.00) Estimat Glomerular Filtration Rate 116mL/min (>59) Glucose Level 69mg/dL (60-99) Calcium Level 7.5mg/dL (8.5-10.1) Total Bilirubin 0.2mg/dL (0.0-1.2) Aspartate Amino Transf (AST/SGOT) 22U/L (0-50) Alanine Aminotransferase (ALT/SGPT) 17U/L (0-32) Alkaline Phosphatase 66U/L (25-165) Total Protein 5.2g/dL (6.4-8.4) Albumin 2.9g/dL (3.4-5.0) Prothrombin Time 10.1sec (8.1-12.5) Prothromb Time International Ratio 0.95ratio Discharge Medications Discharge Medications Ascorbic Acid (Vitamin C) 1,000 Mg Tab.chew 1,000 MG PO DAILY (Reported) Atorvastatin Calcium (Atorvastatin Calcium) 10 Mg Tablet 10 MG PO HS Prescribed by: MARIA GUADALUPE MAHARAJ DO Calcium Carbonate (Calcium) 600 Mg Tablet 600 MG PO DAILY (Reported) Cholecalciferol (Vitamin D3) (Vitamin D3) 5,000 Unit Capsule 5,000 UNIT PO DAILY (Reported) Cranberry Fruit (Cranberry) 500 Mg Tab.chew 500 MG PO DAILY (Reported) Cyanocobalamin (Vitamin B-12) (Vitamin B12) 5,000 Mcg Tab.rapdis 5,000 MCG PO DAILY (Reported) Enoxaparin (Lovenox) 80 Mg/0.8 Ml Syringe 80 MG SUBQ Q12 Prescribed by: MARIA GUADALUPE MAHARAJ DO Folic Acid (Folic Acid) 1 Mg Tablet 1 MG PO DAILY (Reported) Gabapentin (Gabapentin) 300 Mg Capsule 600 MG PO BID (Reported) Metoprolol Succinate ER (Metoprolol Succinate ER) 25 Mg Tab.er.24h 25 MG PO BID Prescribed by: ROSINA BIGGS Propafenone (Propafenone) 225 Mg Tablet 225 MG PO q8 hrs Prescribed by: ROSINA BIGGS Tamsulosin (Flomax) 0.4 Mg Capsule 0.4 MG PO DAILY (Reported) Vitamin B Complex & Vit C No.4 (Super B Complex) 150 Mg Tablet 150 MG PO DAILY ( Reported) Warfarin Sodium (Warfarin Sodium) 5 Mg Tablet 5 MG PO SAT,SAT,,SAT ( Reported) Warfarin Sodium (Warfarin Sodium) 5 Mg Tablet 7.5 MG PO MON,SAT,FRI (Reported) oxyCODONE (oxyCODONE) 30 Mg Tablet 30 MG PO TID (Reported) As needed Diclofenac Gel (Voltaren Gel) 100 Gm Tube 1 APPLIC TOPICAL TID PRN PRN SHOULDER PAIN (Reported) Oxycodone (Roxicodone) 5 Mg Tablet 10 MG PO TID PRN PRN For Breakthrough Pain ( Reported) Followup Plan Discharge Diet: Heart Healthy Discharge Activity: Other (Follow post-op recommendations) Patient Instructions Continue your home warfarin regimen with close follow up at the INR clinic. Your risk of another TIA is high; I would like you to inject Lovenox 100mg/ml every 12 hours until your warfarin is therapeutic. Follow up with Dr. Green in 1-2 weeks to evaluation further symptoms or medication changes. Follow up with Dr. Porter as scheduled. Due to your post-op and hospitalization weakness, I concur with PT and recommend home health services for PT 3x weekly for 2-3 weeks to safely help regain strength and function. Follow-up Provider: Joseph Green DO Follow-up with PCP in: 2 weeks Time spent Greater than 30 minutes was spent in preparation of discharge with greater than 50% of that time dedicated to patient counseling and coordination of care. . Attending Statement The patient was seen and examined together with Dr. Maharaj on 12/15/2016 and I agree with the history, exam and plan as outlined in the note above. . copies to: Joseph Green DO; Maximo Porter MD, Jeffery S DO Dec 15, 2016 14:36 Jonathan Lozoya MD Dec 15, 2016 16:33 Due to your post-op and hospitalization weakness, I concur with PT and recommend home health services for PT 3x weekly for 2-3 weeks to safely help regain strength and function. Follow-up Provider: Joseph Green DO Follow-up with PCP in: 2 weeks Maria Guadalupe Maharaj DO Dec 15, 2016 14:36
== END 2016-12-15 14:00 | disposition home or self-care (01) ==
LOC: EDBD 18:39 → SED 18:39 → PCC 21:51
PROVIDERS: ADMIT Hospitalist; ATTEND Internal Medicine
DX: R47.81 Slurred speech (principal); I48.0 Paroxysmal atrial fibrillation; I95.9 Hypotension, unspecified; R32 Unspecified urinary incontinence; I62.9 Nontraumatic intracranial hemorrhage, unspecified; M81.8 Other osteoporosis without current pathological fracture; G89.29 Other chronic pain; M54.9 Dorsalgia, unspecified; D64.9 Anemia, unspecified; K59.00 Constipation, unspecified; Z88.2 Allergy status to sulfonamides; Z88.0 Allergy status to penicillin; Z88.1 Allergy status to other antibiotic agents; Z88.5 Allergy status to narcotic agent; Z88.8 Allergy status to other drugs, medicaments and biological substances; Z79.899 Other long term (current) drug therapy; Z95.0 Presence of cardiac pacemaker
CPT/HCPCS: 36415; 36620; 70450; 70496; 70498; 71010; 80048; 80053; 80061; 81000; 82375; 82803; 83036; 84484; 85025; 85027; 85610; 85730; 87077; 87086; 87088; 87186; 92610; 93005; 96360; 96361; 97116; 97163; 97167; 97602; 99291; C8929; G0378; G0480; G8978; G8979; G8980; G8996; G8997; J1650; J7030; J7120; Q9967